=== PATIENT | female | born 1975 | race Hispanic/Latino ===

== ENCOUNTER 2019-08-11 21:42 | Emergency (ER) | payer MEDICAID, OTHER ==
[2019-08-11] MEDS ORDERED: LIDOCAINE HCL 1% 20 ML VIAL ONE (21:54)
[2019-08-11] MEDS ORDERED: TETANUS/DIPHTHERIA TOXOID [ADULT] 0.5 ML VIAL IM ONE (21:55)
[2019-08-11] MEDS ORDERED: OCTYL 2-CYANOACRYLATE 1 EACH TP ONE (21:59)
== END 2019-08-11 22:28 | disposition home or self-care (01) ==
LOC: EDH 21:42
DX: S61.011A Laceration without foreign body of right thumb without damage to nail, initial encounter (principal); F41.9 Anxiety disorder, unspecified; F32.9 Major depressive disorder, single episode, unspecified; Z98.51 Tubal ligation status; W25.XXXA Contact with sharp glass, initial encounter; Y93.89 Activity, other specified; Y92.89 Other specified places as the place of occurrence of the external cause; Y99.8 Other external cause status
CPT/HCPCS: 12001; 90471; 90714